=== PATIENT | male | born 1960 | race American Indian/Alaskan Native ===

== ENCOUNTER 2017-12-16 00:30 | Emergency (ER) | payer OTHER ==
[2017-12-16] MEDS ORDERED: MOTRIN ONE (02:39)
[2017-12-16] MEDS ORDERED: MOTRIN PO ONE (02:50)
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
[2017-12-16] MEDS ORDERED: NORCO 7.5/325 PO ONE (07:20)
[2017-12-16 07:37] VITALS: BP 132/77
== END 2017-12-16 07:36 | disposition home or self-care (01) ==
LOC: ED 00:30
DX: S22.32XA Fracture of one rib, left side, initial encounter for closed fracture (principal); F17.200 Nicotine dependence, unspecified, uncomplicated; V49.59XA Passenger injured in collision with other motor vehicles in traffic accident, initial encounter; Y93.89 Activity, other specified; Y92.89 Other specified places as the place of occurrence of the external cause; Y99.8 Other external cause status
CPT/HCPCS: 36415; 71046; 74177; 82565; 93005; 93010; 99284; Q9967

== ENCOUNTER 2020-11-27 12:26 | Outpatient (CLI) | payer MEDICAID ==
--- NOTE | 2020-11-27 13:36 | XRay Report ---
CHEST 2 VIEWS INDICATION: MAIGRAINE. COMPARISON: 12/16/2017 FINDINGS: Support devices: None. Heart: Within normal limits. Lungs/pleura: No acute air space or interstitial disease. No pneumothorax. Additional findings: None. IMPRESSION: No acute findings. Signer Name: Rogerio Mendez Jr, MD Signed: 11/27/2020 1:31 PM Workstation Name: [id number]
== END 2020-11-27 12:27 | disposition home or self-care (01) ==
LOC: XRAY 12:26
PROVIDERS: ATTEND Nurse Practitioner Family
DX: I10 Essential (primary) hypertension (principal); M54.9 Dorsalgia, unspecified; G43.909 Migraine, unspecified, not intractable, without status migrainosus
CPT/HCPCS: 71046